=== PATIENT | female | born 1960 | race Caucasian/White ===

== ENCOUNTER 2018-02-18 15:43 | Emergency (ER) | payer MEDICARE, BC ==
[~2018-02-18] VITALS: Ht 157.5 cm; Wt 86.2 kg
--- NOTE | ~2018-02-18 | EKG ---
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
[2018-02-18] MEDS ORDERED: CARDIZEM CD240 MG PO (15:53)
[2018-02-18] MEDS ORDERED: ATIVAN1 MG PO (15:53)
[2018-02-18] MEDS ORDERED: CYMBALTA30 MG PO (15:53)
[2018-02-18] MEDS ORDERED: COZAAR 50 MG TA50 M2 PO (15:54)
[2018-02-18] MEDS ORDERED: XARELTO20 MG PO (15:54)
[2018-02-18] MEDS ORDERED: CHLORZOXAZONE500 MG PO (15:55)
[2018-02-18] MEDS ORDERED: CRESTOR5 MG PO (15:55)
[2018-02-18 16:27] LABS: ABSOLUTE BASOPHILS 0.1 thou/uL (0.0-0.2); ABSOLUTE EOSINOPHILS 0.1 thou/uL (0.0-0.7); ABSOLUTE LYMPHOCYTES 2.6 thou/uL (0.8-5.3); ABSOLUTE MONOCYTES 0.7 thou/uL (0.0-1.2); ABSOLUTE NEUTROPHILS 5.3 thou/uL (1.6-8.1); BASOPHILS 0.8 %; EOSINOPHILS 1.1 %; HEMATOCRIT 41.7 % (37.0-47.0); HEMOGLOBIN 14.2 gm/dL (12.0-15.0); LYMPHOCYTES 29.4 %; MCH 31.8 pg (26.0-34.0); MCHC 34.2 g/dL (28.0-37.0); MCV 93.1 fL (80.0-100.0); MONOCYTES 8.6 %; MPV 7.3 fl. (7.2-11.1); NUCLEATED RBCS 0 /100WBC; PLATELET COUNT* 256 thou/uL (150-400); POLYS 60.1 %; RBC 4.48 mil/uL (4.20-5.00); WBC 8.8 thou/uL (4.0-11.0)
[2018-02-18 16:32] LABS: CALCIUM 8.4 mg/dL (8.5-10.1); CREATININE 0.8 mg/dL (0.6-1.3); POTASSIUM 3.7 mmol/L (3.5-5.1)
[2018-02-18 16:37] LABS: ALBUMIN 3.4 g/dL (3.4-5.0); TOTAL BILIRUBIN 0.2 mg/dL (<0.1-1.0); TOTAL PROTEIN 6.9 g/dL (6.4-8.2); URIC ACID* 5.1 mg/dL (2.6-7.2)
[2018-02-18] MEDS ORDERED: NORCO 5-325 TA1 EAC1 PO (18:22)
[2018-02-18] MEDS ORDERED: MEDROLDOSEPACK PO (18:22)
[2018-02-18 18:35] VITALS: BP 121/62
--- NOTE | 2018-02-19 11:11 | EKG ---
[place] [address] ELECTROCARDIOGRAM REPORT Name: ASHLEY WATERS Room: 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
== END 2018-02-18 18:37 | disposition home or self-care (01) ==
LOC: M.ERS 15:43
PROVIDERS: Nurse Practitioner Family
DX: M10.9 Gout, unspecified (principal); M25.572 Pain in left ankle and joints of left foot; M32.9 Systemic lupus erythematosus, unspecified; M79.7 Fibromyalgia; I48.91 Unspecified atrial fibrillation; F41.9 Anxiety disorder, unspecified; F32.9 Major depressive disorder, single episode, unspecified; J44.9 Chronic obstructive pulmonary disease, unspecified; Z90.710 Acquired absence of both cervix and uterus; Z88.8 Allergy status to other drugs, medicaments and biological substances; F17.200 Nicotine dependence, unspecified, uncomplicated